=== PATIENT | male | born 1970 | race Caucasian/White ===

== ENCOUNTER 2017-04-06 17:57 | Observation (INO) ==
[2017-04-06] MEDS ORDERED: 0.9 % Sodium Chloride 1,000 ML IVC ONE (19:03)
[2017-04-06 19:44] LABS: Hemoglobin 10.9 g/dL (12.9-16.9); Immature Granulocytes % 0.5 % (0-4); Red Cell Distribution Width 16.6 % (11.5-14.5)
[2017-04-06 19:45] LABS: Hematocrit 32.1 % (37.5-50.1); Immature Platelets 17.8 % (1.1-6.1); Lymphocytes # 1.6 K/mcL (0.6-4.6); Lymphocytes % 74.5 %; Mean Corpuscular Hemoglobin 33.1 pg (28.0-33.3); Mean Corpuscular Volume 97.6 fL (83.0-100.0); Mean Platelet Volume 11.5 fL (9.4-12.4); Monocytes % 21.2 %; Neutrophils # 0.1 K/mcL (1.6-8.9); Red Blood Count 3.29 M/mcL (4.19-5.50); Segmented Neutrophils % 3.8 %
[2017-04-06 19:59] LABS: Alanine Aminotransferase 37 Units/L (0-55); Albumin 2.7 g/dL (3.5-5.0); Albumin/Globulin Ratio 0.7 (1.1-2.2); Alkaline Phosphatase 72 Units/L (38-126); Aspartate Amino Transferase 21 Units/L (5-34); BUN/Creatinine Ratio 19 (6-26); Bilirubin,Total 0.5 mg/dL (0.2-1.2); Blood Urea Nitrogen 15 mg/dL (8-26); Calcium 8.5 mg/dL (8.6-10.8); Carbon Dioxide 28 mEq/L (19-29); Chloride 105 mEq/L (98-109); Glucose 89 mg/dL (70-99); Lactate Dehydrogenase 370 Units/L (159-327); Osmolality,Calculated 292 (280-300); Potassium 4.1 mEq/L (3.5-4.5); Sodium 141 mEq/L (136-145); Total Protein 6.7 g/dL (6.0-8.3); Uric Acid 2.8 mg/dL (3.5-7.2); eGFR For African Americans > 60 (> 60); eGFR For Non-African Americans > 60 (> 60)
[2017-04-06 20:05] LABS: Monocytes # 0.5 K/mcL (0.0-1.3); Platelet Count 47 K/mcL (140-400)
[2017-04-06 21:13] LABS: Bilirubin,Urine Negative (Negative); Blood,Urine Negative (Negative); Clarity,Urine Clear (Clear); Color,Urine Yellow (Yellow); Glucose,Urine (UA) Normal (Normal); Ketones,Urine Negative (Negative); Leukocyte Esterase,Urine Negative (Negative); Nitrite,Urine Negative (Negative); Protein,Urine Negative (Neg-Trace); Specific Gravity,Urine 1.015 (1.010-1.025); Urobilinogen,Urine Normal (Normal)
--- NOTE | 2017-04-06 21:20 | Emergency Department Note ---
Disposition Clinical Impression: AML (acute myelogenous leukemia) Qualifiers: Leukemia Active/Remission status: without remission Qualified Code(s): C92.00 - Acute myeloblastic leukemia, not having achieved remission Disposition: Admitted As Inpatient Condition: Undetermined General Adult HPI - General Chief complaint: ED General Medical Stated complaint: Needs Referal to CC Time Seen by Provider: 04/06/17 18:27 Source: patient Limitations: no limitations Nursing Notes Reviewed: Yes Vital Signs Reviewed: Yes - History of Present Illness HPI Narrative: 46-year-old male with a history of acute myelogenous leukemia. He was actually admitted to the [facility] and was being treated by their oncology department. It is recommended that he get high dose chemotherapy. He ultimately had a aggressive interaction with his oncologist per the transfer center nurse at [facility]. He ultimately left AGAINST MEDICAL ADVICE after recommendations for admission for neutropenia and fever. He left the hospital wanting to come duodenum for a second opinion. He actually walked into the outpatient cancer center today and they told him to come to the emergency Department for referral as he does not have a primary care physician. He came today without any significant complaints but was supposed to be hospitalized at [facility]. . Pain Scale: 0 - Related Data Home Medications Medication Instructions Recorded Confirmed Allopurinol [Zyloprim 300 MG] 300 mg PO DAILY 04/06/17 04/06/17 Hydroxyurea [Hydroxyurea] 2,000 mg PO BID 04/06/17 04/06/17 OxyCODONE Immed Rel [Roxicodone 5 5 mg PO Q4H PRN 04/06/17 04/06/17 MG] Prochlorperazine Maleate 10 mg PO Q6H PRN 04/06/17 04/06/17 [Compazine] levoFLOXacin [Levofloxacin] 750 mg PO DAILY 04/06/17 04/06/17 Allergies Allergy/AdvReac Type Severity Reaction Status Date / Time codeine Allergy Abdominal Verified 01/20/17 00:12 Pain Penicillins Allergy Anaphylaxis Verified 01/20/17 00:12 All systems ED: reviewed and negative except as stated. Past Medical History - Past Medical History Medical history: Reports: cancer, other Psychiatric history: Reports: no psych history - Social History Smoking Status: Current every day smoker Smokeless Tobacco Status: No Alcohol use: Reports: none Drug use: Reports: none Physical Exam - General Limitations: no limitations General appearance: alert, in no apparent distress - Head Head exam: atraumatic - Eye Eye exam: Present: normal appearance - ENT ENT exam: normal exam - Neck Neck exam: Present: normal inspection - Chest Chest inspection: Present: normal inspection - Respiratory Respiratory exam: Present: normal lung sounds bilaterally - Cardiovascular Cardiovascular exam: Present: regular rate, normal rhythm - Abdominal Exam Abdominal exam: Present: soft, Non-Tender - Male exam: Present: normal inspection - Expanded Lower Extremity Exam Knee exam: Present: normal inspection Neurovascular/Tendon exam: Present: normal capillary refill - Back Exam Back exam: Present: normal inspection, full ROM - Neurological Exam Neurological exam: Present: alert, oriented X3, CN II-XII intact - Psychiatric Psychiatric exam: Present: normal affect, normal mood - Skin Skin exam: Present: warm, dry Course Vital Signs Temperature 98.6 F 04/06/17 18:01 Pulse Rate 110 04/06/17 18:01 Respiratory Rate 20 04/06/17 18:01 Blood Pressure 120/88 04/06/17 18:01 O2 Sat by Pulse Oximetry 98 04/06/17 18:01 Temperature 98.6 F 04/06/17 18:01 Pulse Rate 110 04/06/17 18:01 Respiratory Rate 20 04/06/17 18:01 Blood Pressure 120/88 04/06/17 18:01 O2 Sat by Pulse Oximetry 98 04/06/17 18:01 Oxygen Delivery Oxygen Delivery Room Air Medical Decision Making - MDM Narrative Medical decision making narrative: I did discuss with him extensively that he would be benefited by transferred [facility]. He denied this. He wants to come here for a second opinion as he thinks we have immunotherapy that can benefit his treatment and possibly help this course. I did contact [facility] who confirm the story of acute myelogenous leukemia. He has not had a bone marrow biopsy as of yet. It was recommended that he get high dose chemotherapy and apparently he was opposed to this and this parked an aggressive interaction with his oncologist. [facility] is still willing to evaluate this patient however is not willing to go back there. I did discuss the case with our on-call tax audit manager. He would be willing to see the patient after an admission here as a consult. He will provide a second opinion. Ultimately the patient is be transferred back to [facility] he can do this but he is refusing at the current time and like to be admitted here for second opinion. I discussed this with the hospitalist team. I did obtain a uric acid, LDH which are elevated. White blood cell count is low. I did empirically start antibiotic therapy and sent blood cultures. Chest x-ray shows no acute findings. We will admit to hospitalist team with consult oncology - Medical Records Medical records reviewed: Yes I reviewed the patient's medical records. - Lab Data Lab results reviewed: Yes I reviewed the patient's lab results. Result diagrams: 04/06/17 19:34 04/06/17 19:34 Lab Results 04/06/17 04/06/17 04/06/17 Range/Units 19:34 19:34 21:00 WBC 2.1 L (4.3-11.1) K/mcL RBC 3.29 L (4.19-5.50) M/mcL Hgb 10.9 L (12.9-16.9) g/dL Hct 32.1 L (37.5-50.1) % MCV 97.6 (83.0-100.0) fL MCH 33.1 (28.0-33.3) pg MCHC 34.0 (31.6-35.5) g/dL RDW 16.6 H (11.5-14.5) % Plt Count 47 L (140-400) K/mcL MPV 11.5 (9.4-12.4) fL Immature Gran % 0.5 (0-4) % Seg Neutrophils % 3.8 % Lymphocytes % 74.5 % Monocytes % 21.2 % Eosinophils % 0.0 % Basophils % 0.0 % Neutrophils # 0.1 L (1.6-8.9) K/mcL Lymphocytes # 1.6 (0.6-4.6) K/mcL Monocytes # 0.5 (0.0-1.3) K/mcL Eosinophils # 0.0 (0.0-0.6) K/mcL Basophils # 0.0 (0.0-0.2) K/mcL Immature Plt Fraction 17.8 H (1.1-6.1) % Sodium 141 (136-145) mEq/L Potassium 4.1 (3.5-4.5) mEq/L Chloride 105 (98-109) mEq/L Carbon Dioxide 28 (19-29) mEq/L BUN 15 (8-26) mg/dL Creatinine 0.79 (0.72-1.25) mg/dL Est GFR ( Amer) > 60 (> 60) Est GFR (Non-Af Amer) > 60 (> 60) BUN/Creatinine Ratio 19 (6-26) Glucose 89 (70-99) mg/dL Calculated Osmolality 292 (280-300) Uric Acid 2.8 L (3.5-7.2) mg/dL Calcium 8.5 L (8.6-10.8) mg/dL Total Bilirubin 0.5 (0.2-1.2) mg/dL AST 21 (5-34) Units/L ALT 37 (0-55) Units/L Alkaline Phosphatase 72 (38-126) Units/L Lactate Dehydrogenase 370 H (159-327) Units/L Serum Total Protein 6.7 (6.0-8.3) g/dL Albumin 2.7 L (3.5-5.0) g/dL Globulin 4.0 H (2.4-3.5) g/dL Albumin/Globulin Ratio 0.7 L (1.1-2.2) Urine Color Yellow (Yellow) Urine Clarity Clear (Clear) Urine pH 6.0 (5.0-8.0) pH Units Ur Specific [place] 1.015 (1.010-1.025) Urine Protein Negative (Neg-Trace) mg/dL Urine Glucose (UA) Normal (Normal) mg/dL Urine Ketones Negative (Negative) mg/dL Urine Blood Negative (Negative) Urine Nitrite Negative (Negative) Urine Bilirubin Negative (Negative) Urine Urobilinogen Normal (Normal) mg/dL Ur Leukocyte Esterase Negative (Negative) Ur Culture Indicated? NO (NO) - Radiology Data Radiology results reviewed: Yes I reviewed the patient's radiology results.
[2017-04-06] MEDS: Nicotine 21 MG PATCH.TD24 TD SCH (22:34)
[2017-04-07] MEDS ORDERED: Acetaminophen 325 MG TABLET PO PRN (01:07)
[2017-04-07] MEDS ORDERED: Naloxone 0.4 MG/ML INJ IVP PRN (01:07)
[2017-04-07] MEDS ORDERED: *HR* OxyCODONE Immed Rel 5 MG TABLET PO PRN (01:14)
--- NOTE | 2017-04-07 01:25 | Internal Med History&Physical ---
Date of Encounter: 04/07/17 Time of Encounter: 01:00 Assessment and Plan (1) AML (acute myelogenous leukemia) Current visit: Yes Status: Acute 1. Consult oncology for second opinion. 2. Repeat labs in AM. 3. Continue home meds as appropriate. Qualifiers: Leukemia Active/Remission status: without remission Qualified Code(s): C92.00 - Acute myeloblastic leukemia, not having achieved remission (2) DVT prophylaxis Current visit: Yes Status: Acute 1. EPCD's. 2. No anticoagulation due to low platelets. Internal Medicine - H&P: HPI Chief complaint: second opinion Admitted From: Emergency Dept Plans for Post Hospital Care: Home History of present illness: Mr. Barclay is a 46 year old male who presents to the ER tonight for second opinion regarding treatment of his acute myelogenous leukemia. He was diagnosed a few weeks ago at [facility] and was due to start aggressive chemotherapy. Unfortunately, he had an abrasive interaction with the oncologist at [facility] and he signed himself out AGAINST MEDICAL ADVICE from [facility]. He therefore presented to our ER for a second opinion by our oncology group. He had routine labs performed and oncology was consulted. They recommended admitting patient to the hospitalist service and they will see him in the morning. Upon my assessment of the patient, he is in no distress and denies any complaints. I inquired about how he initially presented with this AML diagnosis. He states he presented to his local ER at [facility] with some generalized complaints including fatigue, nausea, vomiting, and body aches. Routine labs revealed patient had pancytopenia, and he was transferred to [facility] at that point. He had initial workup done at [facility], but he has not yet had bone marrow biopsy. He inquired at [facility] about other treatment options, but his oncologist recommended high-dose chemotherapy and, unfortunately, it appears there was a personality conflict between patient and physician. Out of frustration, he signed out AMA, and he is now seeking a second opinion. He denies any fevers, chills, weight loss, appetite loss, chest pain, shortness of breath, or night sweats. He does complain of some mild rib pain in his back. Otherwise, he has no concerns or complaints at this time. He is very interested in obtaining a second opinion from oncology here and/or third opinion at another facility before he initiates chemotherapy or other treatment options. Past Med Surg Social Fam HX - Past Medical History Attestation: Yes The following information was validated with the patient. Source: patient Medical history: cancer (AML) Psychiatric history: no psych history - Past Surgical History Surgical History: orthopedic, other (right arm surgery -- trauma-related) - Social History Smoking Status: Current every day smoker Packs per day: 1ppd Smokeless Tobacco Status: No Alcohol use: none Drug use: none Current living situation: Home Activity Level: Independent ambulation Recent Out of Country Travel Within the Last 8 Weeks: No - Family History Mother Hx Family Cancer: No Father Living Status: Hx Family Cancer: No Internal Medicine - H&P: Meds Allopurinol [Zyloprim 300 MG] 300 mg PO DAILY 04/06/17 [History] Hydroxyurea [Hydroxyurea] 2,000 mg PO BID 04/06/17 [History] OxyCODONE Immed Rel [Roxicodone 5 MG] 5 mg PO Q4H PRN 04/06/17 [History] Prochlorperazine Maleate [Compazine] 10 mg PO Q6H PRN 04/06/17 [History] levoFLOXacin [Levofloxacin] 750 mg PO DAILY 04/06/17 [History] Allergies codeine Allergy (Verified 01/20/17 00:12) Abdominal Pain Penicillins Allergy (Verified 01/20/17 00:12) Anaphylaxis - Constitutional Constitutional: no chills, no fever(s), no night sweats - EENT Eyes: no blurry vision, no change in vision Ears: no tinnitus Nose, mouth and throat: no nasal congestion, no sinus pressure, no sore throat - Cardiovascular Cardiovascular ROS IM: no chest pain, no dyspnea, no dyspnea on exertion - Respiratory Respiratory: no cough, no dyspnea, no hemoptysis - Gastrointestinal Gastrointestinal: no abdominal pain, no diarrhea, no hematemesis, no hematochezia, no melena, no vomiting - Genitourinary Genitourinary ROS male: no dysuria, no flank pain, no hematuria - Musculoskeletal Musculoskeletal ROS IM: back pain, no arthralgias - Integumentary Integumentary IM: no rash, no jaundice - Neurological Neurological ROS: no disequilibrium, no dizziness, no focal weakness, no frequent falls, no headache(s) - Psychiatric Psychiatric: no anxiety, no depression - Endocrine Endocrine IM: no cold intolerance, no heat intolerance, no polydipsia, no polyuria - Hematologic/Lymphatic Hematologic/Lymphatic: easy bruising, no lymphadenopathy - Allergic/Immunologic Allergic/Immunologic: no wheezing, no GI upset with certain foods - Constitutional Vitals: Temp Pulse Resp BP Pulse Ox 98.4 F 79 14 126/83 98 04/06/17 21:41 04/06/17 21:41 04/06/17 21:41 04/06/17 21:41 04/06/17 21:41 General appearance: Present: cooperative, A&O X 3, pleasant, no acute distress, answers questions appropriately - Head Head exam: Present: atraumatic, normal inspection - Expanded Head Exam Head exam expanded: Absent: abrasion, contusion, general tenderness - Eye Eye exam: Present: EOMI, normal appearance, PERRL. Absent: scleral icterus Pupils: Present: normal accommodation - ENT ENT exam: Present: mucous membranes moist, normal exam, normal oropharynx - Neck Neck exam general surgery: Present: full ROM, supple. Absent: lymphadenopathy, tenderness, thyromegaly - Respiratory Respiratory exam: Present: CTAB. Absent: chest wall tenderness, rales, respiratory distress, rhonchi, wheezes - Cardiovascular Cardiovascular exam: Present: RRR, +S1, +S2. Absent: diastolic murmur, systolic murmur - GI/Abdominal GI/Abdominal exam: Present: normal bowel sounds, soft. Absent: guarding, hepatomegaly, mass, rebound, splenomegaly, tenderness - Extremities Exam Extremities exam: Present: full ROM, warm. Absent: calf tenderness, pedal edema , tenderness - Back Exam Back exam: Present: normal inspection. Absent: CVA tenderness (L), CVA tenderness (R) Additional comments: pain along left lower posterior ribs - Neurological Exam Neurological exam: Present: alert, CN II-XII intact, oriented X3, no focal deficits, strengths equal and symetr throughout - Psychiatric Psychiatric exam: Present: normal affect, normal mood - Skin Skin exam: Present: dry, warm. Absent: rash Internal Med - H&P Results - Labs CBC & Chem 7: 04/06/17 19:34 04/06/17 19:34 - Diagnostic Studies Chest x-ray Status: image reviewed by me (negative)
[2017-04-07 05:22] LABS: Immature Granulocytes % 0.4 % (0-4)
[2017-04-07 05:23] LABS: Hematocrit 31.6 % (37.5-50.1); Immature Platelets 14.8 % (1.1-6.1); Lymphocytes # 1.9 K/mcL (0.6-4.6); Lymphocytes % 80.9 %; Mean Corpuscular HGB Conc 34.8 g/dL (31.6-35.5); Mean Corpuscular Hemoglobin 33.4 pg (28.0-33.3); Mean Platelet Volume 10.3 fL (9.4-12.4); Monocytes % 14.5 %; Neutrophils # 0.1 K/mcL (1.6-8.9); Red Blood Count 3.29 M/mcL (4.19-5.50); Red Cell Distribution Width 16.6 % (11.5-14.5); Segmented Neutrophils % 4.2 %
[2017-04-07 05:31] LABS: INR 1.1; Prothrombin Time 12.2 Seconds (9.4-12.1)
[2017-04-07 05:34] LABS: Activated Partial Thrombo Time 31.3 Seconds (26.0-36.0)
[2017-04-07 05:36] LABS: Alanine Aminotransferase 35 Units/L (0-55); Albumin 2.6 g/dL (3.5-5.0); Albumin/Globulin Ratio 0.7 (1.1-2.2); Alkaline Phosphatase 67 Units/L (38-126); Aspartate Amino Transferase 22 Units/L (5-34); BUN/Creatinine Ratio 15 (6-26); Blood Urea Nitrogen 12 mg/dL (8-26); Calcium 8.1 mg/dL (8.6-10.8); Carbon Dioxide 23 mEq/L (19-29); Chloride 108 mEq/L (98-109); Globulin 3.8 g/dL (2.4-3.5); Glucose 106 mg/dL (70-99); Osmolality,Calculated 290 (280-300); Sodium 140 mEq/L (136-145); Total Protein 6.4 g/dL (6.0-8.3); eGFR For African Americans > 60 (> 60); eGFR For Non-African Americans > 60 (> 60)
[2017-04-07 05:37] LABS: Bilirubin,Total 0.9 mg/dL (0.2-1.2)
[2017-04-07 06:16] LABS: Monocytes # 0.4 K/mcL (0.0-1.3)
[2017-04-07 06:17] LABS: Platelet Count 44 K/mcL (140-400)
[2017-04-07 06:35] VITALS: BP 136/73
[2017-04-07 06:35] LABS: Platelet Estimate Decreased (Normal); Reactive Lymphocytes Present (Not Present)
[2017-04-07] MEDS: Nicotine 21 MG PATCH.TD24 TD SCH (08:27)
[2017-04-07] MEDS ORDERED: levoFLOXacin 750 MG TABLET PO SCH (09:00)
--- NOTE | 2017-04-07 12:06 | Oncology Inp Consult Note ---
Date of Encounter: 04/07/17 Time of Encounter: 12:04 - Data of Consult Patient: new to practice Consult date: 04/07/17 Requesting Physician: Bob Farris MD Primary Care Provider: PCP NO - Consult Narrative Reason for consult: Acute myelogenous leukemia History of present illness: Mr. Barclay is a 46 year old male patient of [default value] who has established oncologic care for [default value] [default value] is followed by my partner [default value] and was last seen in the office[default value]. I have summarized patient's heme/onc background below based on [default value]'s most recent office report. Patient is currently hospitalized for[default value] Oncology is consulted re:[default value] Rest of past medical, surgical, family, social history detailed below and verified with patient today. Review of systems: 12 point review of systems performed with patient and positive findings noted in history of present illness. All other systems are negative: Physical exam: Vital Signs Temp 97.9 F 04/07/17 06:31 Pulse 67 04/07/17 06:31 Resp 16 04/07/17 06:31 BP 136/73 04/07/17 06:31 Pulse Ox 95 04/07/17 06:31 Intake & Output 04/06/17 04/07/17 04/07/17 12:59 00:59 12:59 Intake Total 1080 / 1080 Output Total 0 / 0 Balance 1080 / 1080 Weight 94.971 kg 95.073 kg Intake: Oral 1080 / 1080 Output: Urine 0 / 0 Other: Meal Breakfast Percent of Meal Consumed 45% # Bowel Movements 0 GENERAL: Alert and oriented, [default value] appearing. Mental Status: Affect appropriate for circumstances HEENT: Sclerae anicteric. No mucositis or thrush. No other oral or pharyngeal lesions or erythema. Skin: No rashes or petechiae. No evidence of skin malignancy Lymph nodes: No cervical, supraclavicular, axillary, or inguinal adenopathy. Lungs: Clear to auscultation bilaterally. Clear to percussion bilaterally. Cardiovascular: Regular rate and rhythm. No gallops, murmurs, or rubs. Abdomen: Soft, nontender; No organomegaly or masses palpable. Extremities: No edema. No calf swelling or tenderness. No joint deformity. Neurologic: Alert, normal gait; no focal weakness or sensory abnormalities. Results: Laboratory Last Values WBC 2.4 K/mcL (4.3-11.1) L 04/07/17 05:08 RBC 3.29 M/mcL (4.19-5.50) L 04/07/17 05:08 Hgb 11.0 g/dL (12.9-16.9) L 04/07/17 05:08 Hct 31.6 % (37.5-50.1) L 04/07/17 05:08 MCV 96.0 fL (83.0-100.0) 04/07/17 05:08 MCH 33.4 pg (28.0-33.3) H 04/07/17 05:08 MCHC 34.8 g/dL (31.6-35.5) 04/07/17 05:08 RDW 16.6 % (11.5-14.5) H 04/07/17 05:08 Plt Count 44 K/mcL (140-400) L 04/07/17 05:08 MPV 10.3 fL (9.4-12.4) 04/07/17 05:08 Immature Gran % 0.4 % (0-4) 04/07/17 05:08 Seg Neutrophils % 4.2 % 04/07/17 05:08 Lymphocytes % 80.9 % 04/07/17 05:08 Monocytes % 14.5 % 04/07/17 05:08 Eosinophils % 0.0 % 04/07/17 05:08 Basophils % 0.0 % 04/07/17 05:08 Neutrophils # 0.1 K/mcL (1.6-8.9) L 04/07/17 05:08 Lymphocytes # 1.9 K/mcL (0.6-4.6) 04/07/17 05:08 Monocytes # 0.4 K/mcL (0.0-1.3) 04/07/17 05:08 Eosinophils # 0.0 K/mcL (0.0-0.6) 04/07/17 05:08 Basophils # 0.0 K/mcL (0.0-0.2) 04/07/17 05:08 Reactive Lymphocytes Present (Not Present) A 04/07/17 05:08 Platelet Estimate Decreased (Normal) L 04/07/17 05:08 Immature Plt Fraction 14.8 % (1.1-6.1) H 04/07/17 05:08 PT 12.2 Seconds (9.4-12.1) H 04/07/17 05:08 INR 1.1 04/07/17 05:08 APTT 31.3 Seconds (26.0-36.0) 04/07/17 05:08 Sodium 140 mEq/L (136-145) 04/07/17 05:08 Potassium 4.0 mEq/L (3.5-4.5) 04/07/17 05:08 Chloride 108 mEq/L (98-109) 04/07/17 05:08 Carbon Dioxide 23 mEq/L (19-29) 04/07/17 05:08 BUN 12 mg/dL (8-26) 04/07/17 05:08 Creatinine 0.78 mg/dL (0.72-1.25) 04/07/17 05:08 Est GFR ( Amer) > 60 (> 60) 04/07/17 05:08 Est GFR (Non-Af Amer) > 60 (> 60) 04/07/17 05:08 BUN/Creatinine Ratio 15 (6-26) 04/07/17 05:08 Glucose 106 mg/dL (70-99) H 04/07/17 05:08 Calculated Osmolality 290 (280-300) 04/07/17 05:08 Uric Acid 2.8 mg/dL (3.5-7.2) L 04/06/17 19:34 Calcium 8.1 mg/dL (8.6-10.8) L 04/07/17 05:08 Magnesium 2.0 mg/dL (1.6-2.6) 04/07/17 05:08 Total Bilirubin 0.9 mg/dL (0.2-1.2) D 04/07/17 05:08 AST 22 Units/L (5-34) 04/07/17 05:08 ALT 35 Units/L (0-55) 04/07/17 05:08 Alkaline Phosphatase 67 Units/L (38-126) 04/07/17 05:08 Lactate Dehydrogenase 370 Units/L (159-327) H 04/06/17 19:34 Serum Total Protein 6.4 g/dL (6.0-8.3) 04/07/17 05:08 Albumin 2.6 g/dL (3.5-5.0) L 04/07/17 05:08 Globulin 3.8 g/dL (2.4-3.5) H 04/07/17 05:08 Albumin/Globulin Ratio 0.7 (1.1-2.2) L 04/07/17 05:08 Urine Color Yellow (Yellow) 04/06/17 21:00 Urine Clarity Clear (Clear) 04/06/17 21:00 Urine pH 6.0 pH Units (5.0-8.0) 04/06/17 21:00 Ur Specific [place] 1.015 (1.010-1.025) 04/06/17 21:00 Urine Protein Negative mg/dL (Neg-Trace) 04/06/17 21:00 Urine Glucose (UA) Normal mg/dL (Normal) 04/06/17 21:00 Urine Ketones Negative mg/dL (Negative) 04/06/17 21:00 Urine Blood Negative (Negative) 04/06/17 21:00 Urine Nitrite Negative (Negative) 04/06/17 21:00 Urine Bilirubin Negative (Negative) 04/06/17 21:00 Urine Urobilinogen Normal mg/dL (Normal) 04/06/17 21:00 Ur Leukocyte Esterase Negative (Negative) 04/06/17 21:00 Ur Culture Indicated? NO (NO) 04/06/17 21:00 Radiographic studies: I personally reviewed and interpreted patient's most recent imaging studies dated [default value]. I discussed the findings with the patient today. Impression/recommendations: Acute myelogenous leukemia: Pancytopenia: We'll follow the patient along side you during this hospitalization but please do not hesitate to call regarding interval hematologic questions as they arise. Thank you for your excellent ongoing care for allowing us to see [default value ] while in-house. This report was created using voice recognition software and may contain errors. It was signed but not edited to expedite communication. Corrections will be made in a separate addendum as needed. Past Med Surg Social Fam HX - Past Medical History Medical history: cancer (AML) Psychiatric history: no psych history - Past Surgical History Surgical History: orthopedic, other (right arm surgery -- trauma-related) - Social History Smoking Status: Current every day smoker Packs per day: 1ppd Smokeless Tobacco Status: No Alcohol use: none Drug use: none - Family History Mother Hx Family Cancer: No Father Living Status: Hx Family Cancer: No Medications and Allergies Allopurinol [Zyloprim 300 MG] 300 mg PO DAILY 04/06/17 [History] Hydroxyurea [Hydroxyurea] 2,000 mg PO BID 04/06/17 [History] OxyCODONE Immed Rel [Roxicodone 5 MG] 5 mg PO Q4H PRN 04/06/17 [History] Prochlorperazine Maleate [Compazine] 10 mg PO Q6H PRN 04/06/17 [History] levoFLOXacin [Levofloxacin] 750 mg PO DAILY 04/06/17 [History] Allergies codeine Allergy (Verified 01/20/17 00:12) Abdominal Pain Penicillins Allergy (Verified 01/20/17 00:12) Anaphylaxis Oncology - Exam - Constitutional Vitals: Temp Pulse Resp BP Pulse Ox 97.9 F 67 16 136/73 95 04/07/17 06:31 04/07/17 06:31 04/07/17 06:31 04/07/17 06:31 04/07/17 06:31 Oncology - Results - Labs Labs: Short CBC 04/07/17 Range/Units 05:08 WBC 2.4 L (4.3-11.1) K/mcL Hgb 11.0 L (12.9-16.9) g/dL Hct 31.6 L (37.5-50.1) % Plt Count 44 L (140-400) K/mcL Neutrophils # 0.1 L (1.6-8.9) K/mcL BMP 04/07/17 05:08 Sodium 140 Potassium 4.0 Chloride 108 Carbon Dioxide 23 BUN 12 Creatinine 0.78 Glucose 106 H Calcium 8.1 L Liver Function 04/07/17 Range/Units 05:08 Total Bilirubin 0.9 D (0.2-1.2) mg/dL AST 22 (5-34) Units/L ALT 35 (0-55) Units/L Alkaline Phosphatase 67 (38-126) Units/L Albumin 2.6 L (3.5-5.0) g/dL Consult Discharge Plan - Plan Referrals: NO,PCP [Primary Care Provider] -
--- NOTE | 2017-04-07 13:18 | Event Note ---
Date of Encounter: 04/07/17 Time of Encounter: 13:15 I was asked to see patient in consultation regarding what appears to be newly diagnosed acute myelogenous leukemia but patients and AGAINST MEDICAL ADVICE prior to my seeing him. I had a chance to review his records from [facility] [employer] and spoke with the patient about the phone. He reports that he has a better grasp of his diagnosis and is contemplating the option to help to make the best decision regarding treatment direction. He had some questions about immunotherapy and I informed him that current knowledge does not indicate a huge role for immunotherapy in the management of acute myelogenous leukemia. 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 I informed him that he is likely best served proceeding recommended course of treatment including allogenic stem cell transplant recommended by [facility]. I offered to make him an appointment in the office to address any lingering questions and daily to his oncologic needs locally but he prefers to hold off at this time.
--- NOTE | 2017-04-07 13:21 | Event Note ---
Date of Encounter: 04/07/17 Time of Encounter: 10:40 I had quite a lengthy interaction with Mr. Barclay this morning. He was upset that I entered the room while he was on the phone. I offered to come back to the room but he hung up the phone and tossed it into the chair next to the bed. He said that every time he gets on the phone someone enters the room. He was obviously frustrated about not being up to sleep all night long. I empathized with patient and tried to diffuse the situation and apologized. He said that he had only come here to see oncology and did not understand why he had to go to the emergency room and then be admitted and see everyone but the oncologist. I explained the process to him. He said that he had gone to the cancer Center yesterday to seek treatment and they told him to go to the emergency room where he would get a treatment. He said that he left [facility] yesterday and came to [place] because [place] has a new treatment that is not chemotherapy that [facility] does not have yet. He was told that if he went to the emergency room he would get this treatment and he was upset that that did not happen. This morning he is upset that he had to wait to see oncology. Again I explained the procedure to him that unfortunately, he had to be admitted by the hospitalist, seen by me this morning, and that oncology would be over to see him today. He said that he was going to leave and go to [facility] today for the chemotherapy that they promised him when he was admitted. Again explained to him that he would most likely have to go through the emergency department again and have labs drawn again and then be admitted to the [facility]. I encouraged him to stay and see the oncologist here since he was already here and that the oncologist would be here soon. He agreed. He appeared to be okay and thanked me for explaining things to him. His physical exam was completely unremarkable. Lungs were clear, speech was clear, he was alert and oriented, no lymphadenopathy or tenderness in neck, S1-S2 regular rate and rhythm without gallops clicks or murmurs. Abdomen was soft and nontender with bowel sounds present. He had adequate range of motion to all joints. His lungs were clear anteriorly and posteriorly. I received a page from his primary nurse saying that he was leaving AMA and he was going to go back to [facility] on Sunday. Patient left AMA at 1150.
== END 2017-04-07 11:53 | disposition left against medical advice (07) ==
LOC: 3ANU 17:57 → EMEROO 17:57 → SUATTDRO 21:12 → 3ANU 21:35
PROVIDERS: ADMIT Internal Medicine; ATTEND Internal Medicine